=== PATIENT | female | born 1990 | race Caucasian/White ===

== ENCOUNTER → 2017-04-17 | Outpatient (CLI) | payer OTHER ==
--- NOTE | 2017-04-17 09:30 | DIAGNOSTIC IMAGING REPORT ---
RIGHT FOOT MIN 3 VIEWS HISTORY: 26 years Female acute injury to the right foot. COMPARISON: None available TECHNIQUE: 3 views of the right foot FINDINGS: Midfoot alignment is anatomic. There is mild soft tissue swelling adjacent to the first metatarsal head medially. Note is made of an os trigonum. There is no acute fracture, dislocation or significant degenerative changes. Negative for radiopaque foreign body. IMPRESSION: Mild soft tissue swelling adjacent to the first metatarsal head without acute fracture or dislocation identified. The above report was generated using voice recognition software. It may contain grammatical, syntax or spelling errors. Electronically signed by: Oc Adair M.D. 04/17/2017 9:29 AM Dictated Date/Time: 04/17/2017 9:27 AM
== END | disposition home or self-care (01) ==
LOC: C.RDSM 08:30
PROVIDERS: ATTEND Physician Assistant
DX: S92.301A Fracture of unspecified metatarsal bone(s), right foot, initial encounter for closed fracture (principal); X58.XXXA Exposure to other specified factors, initial encounter